=== PATIENT | female | born 1980 ===

== ENCOUNTER 2018-06-24 13:09 | Emergency (ER) | payer MEDICAID ==
[2018-06-24 14:01] VITALS: TEMP 98.5; O2SAT 100
--- NOTE | 2018-06-24 14:45 | ED PDOC ---
HPI: Headache Time Seen by Provider: 06/24/18 14:05 Chief Complaint (Nursing): Headache Chief Complaint (Provider): Headache History Per: Patient History/Exam Limitations: no limitations Current Symptoms Are (Timing): Still Present Quality: Sharp, "Pain" Additional Complaint(s): 38 year old female with a history of migraines presents to the ED with an intermittent headache associated with pain behind her ear for the last week. Patient reports pain is different from migraine symptoms and describes her head as "tender" on the left side. She reports taking NSAIDs occasionally for pain. Patient is concerned for tumor or aneurysm prompting her visit for the ED. Denies fever and trauma. PMD: none provided Past Medical History Reviewed: Historical Data, Nursing Documentation, Vital Signs Vital Signs: Last Vital Signs Temp 98.5 F 06/24/18 13:58 Pulse 72 06/24/18 13:58 Resp 16 06/24/18 13:58 BP 122/81 06/24/18 13:58 Pulse Ox 100 06/24/18 13:58 - Medical History PMH: Migraine - Surgical History Surgical History: No Surg Hx - Family History Family History: States: Unknown Family Hx - Allergies Allergies/Adverse Reactions: Allergies Allergy/AdvReac Type Severity Reaction Status Date / Time Penicillins Allergy SHORTNESS Verified 06/24/18 14:00 OF BREATH Review of Systems ROS Statement: Except As Marked, All Systems Reviewed And Found Negative Neurological: Positive for: Headache Physical Exam - Reviewed Nursing Documentation Reviewed: Yes Vital Signs Reviewed: Yes - Physical Exam Appears: Positive for: Well, Non-toxic, No Acute Distress Head Exam: Positive for: ATRAUMATIC, NORMOCEPHALIC. Negative for: NORMAL INSPECTION ((+) mild tenderness to touch on left side of head) Skin: Positive for: Normal Color, Warm, Dry. Negative for: Rash Eye Exam: Positive for: EOMI, Normal appearance, PERRL ENT: Positive for: TM Is/Are (left TM is normal) Neck: Positive for: Normal, Painless ROM, Supple (non tender) Cardiovascular/Chest: Positive for: Regular Rate, Rhythm Respiratory: Positive for: Normal Breath Sounds. Negative for: Respiratory Distress Neurologic/Psych: Positive for: Alert, Oriented (x 3). Negative for: Motor/ Sensory Deficits - Laboratory Results Urine POC: Negative - ECG O2 Sat by Pulse Oximetry: 100 (RA) Pulse Ox Interpretation: Normal - Progress ED Course And Treament: HEAD CT: WNL Medical Decision Making Medical Decision Makin:15 impression: intermittent headache Initial plan: --Head CT Scribe Attestation: Documented by Josefina Moreira, acting as a scribe for Rajesh Carvalho PA-C Provider Scribe Attestation: All medical record entries made by the Scribe were at my direction and personally dictated by me. I have reviewed the chart and agree that the record accurately reflects my personal performance of the history, physical exam, medical decision making, and the department course for this patient. I have also personally directed, reviewed, and agree with the discharge instructions and disposition. Disposition - Clinical Impression Clinical Impression: Headache - Patient ED Disposition Is Patient to be Admitted: No - Disposition Referrals: Michael Glover MD [Medical Doctor] - [facility] [Outside] Disposition: Routine/Home Disposition Time: 16:48 Condition: FAIR Instructions: Headache, Adult Forms: [employer] (Dutch)
--- NOTE | 2018-06-24 16:47 | CT ---
Date of service: 06/24/2018 PROCEDURE: CT HEAD WITHOUT CONTRAST. HISTORY: Headache COMPARISON: None available. TECHNIQUE: Axial computed tomography images were obtained through the head/brain without intravenous contrast. Radiation dose: Total exam DLP = 809.22 mGy-cm. This CT exam was performed using one or more of the following dose reduction techniques: Automated exposure control, adjustment of the mA and/or kV according to patient size, and/or use of iterative reconstruction technique. FINDINGS: HEMORRHAGE: No intracranial hemorrhage. BRAIN: Owen-white matter differentiation is preserved. There is no mass, mass effect or abnormal extra-axial fluid collection. There is no territorial infarction. The midline sagittal structures are normal. VENTRICLES: The ventricles are normal in size, shape and configuration. CALVARIUM: Unremarkable. PARANASAL SINUSES: Predominantly clear. MASTOID AIR CELLS: Predominantly clear. OTHER FINDINGS: None. IMPRESSION: No acute intracranial abnormality.
[2018-06-24 16:57] VITALS: BP 131/86; PULSE 75; RESP 18
== END 2018-06-24 16:57 | disposition home or self-care (01) ==
LOC: H.ER 13:09
DX: R51 Headache (principal); Z88.0 Allergy status to penicillin